=== PATIENT | female | born 1990 | race Caucasian/White ===

== ENCOUNTER 2019-04-22 15:21 | Inpatient (IN) | payer OTHER ==
[~2019-04-22] VITALS: Ht 170.2 cm; Wt 53.6 kg
[~2019-04-22 15:21] MED LIST: ATARAX,VISTARIL50 MG PO; CARBIDOPA/LEVOD1 TA1 PO; ZOFRAN 4 MG ED2 TAB PO
[2019-04-22 16:00] VITALS: BP 115/71
--- NOTE | 2019-04-22 16:47 | NUR ---
Patient meets [facility] criteria. CINA=16. Patient is planning on going to [facility] post discharge. Patient stated she was calling [facility] or tomorrow morning to schedule this herself.
[2019-04-22 17:00] VITALS: BP 115/71
[2019-04-22 17:03] LABS: BILIRUBIN NEGATIVE (NEGATIVE); BLOOD NEGATIVE (NEGATIVE); CLARITY SL CLOUDY (CLEAR); COLOR YELLOW (YELLOW); GLUCOSE NEGATIVE (NEGATIVE); KETONE NEGATIVE (NEGATIVE); LEUKO ESTERASE NEGATIVE (NEGATIVE); NITRITE NEGATIVE (NEGATIVE); UROBILINOGEN 0.2 E.U./dl (0.2-1.0)
[2019-04-22 17:10] LABS: URINE AMPHETAMINES < 1000 (1000ng/ml); URINE BARBITURATES < 200 (200ng/ml); URINE BENZODIAZEPINES < 200 (200ng/ml); URINE CANNABINOIDS (THC) > 50 (50ng/ml); URINE COCAINE < 300 (300ng/ml); URINE METHADONE < 300 (300ng/ml); URINE OPIATES > 300 (300ng/ml)
[2019-04-22 17:11] LABS: URINE PHENCYCLIDINE < 25 (25ng/ml)
[2019-04-22 17:16] LABS: BACTERIA 2+
[2019-04-22 19:12] LABS: BASO % 0.4 % (0.0-1.0); EOS # 0.1 10*3/uL (0.0-0.4); HEMATOCRIT 40.4 % (37.0-47.0); HEMOGLOBIN 13.4 g/dl (12.0-16.0); MEAN CELL VOLUME 93.7 fl (81.0-99.0); MEAN CORPUSCULAR HGB 31.1 pg (27.0-31.0); MEAN CORPUSCULAR HGB CONC 33.2 g/dl (33.0-37.0); MEAN PLATELET VOLUME 10.8 fl (9.6-12.3); MONO # 0.4 10*3/uL (0.1-1.0); MONO % 7.4 % (3.0-9.0); NEUT # 2.9 10*3/uL (2.3-7.9); PLATELET COUNT AUTOMATED 228 10*3/uL (130-400); RED BLOOD COUNT 4.31 10*6/uL (4.10-5.10); RED CELL DISTRI WIDTH 11.9 % (0-14.5); WHITE BLOOD COUNT 5.4 10*3/uL (4.8-10.8)
[2019-04-22 19:19] LABS: INTERNATIONAL NORM RATIO 0.9 (2.0-3.5)
[2019-04-22 19:20] LABS: ALBUMIN 3.9 gm/dl (3.1-4.5); ALKALINE PHOSPHATASE 59 U/L (45-117); BUN 5 mg/dl (7-24); CHLORIDE 108 mmol/L (98-107); CREATININE 0.73 mg/dL (0.55-1.02); POTASSIUM 4.1 mmol/L (3.5-5.1); SGOT/AST 17 IU/L (3-35); SGPT/ALT 17 U/L (12-78); SODIUM 141 mmol/L (136-145); TOTAL PROTEIN 7.4 gm/dL (6.4-8.2)
[2019-04-22 19:24] LABS: BETA-HCG, QUANT < 1.0 mIU/mL (1-3); ETHYL ALCOHOL < 3.0 mg/dl (<3)
[2019-04-22 20:00] VITALS: BP 106/70
--- NOTE | 2019-04-22 20:09 | NUR ---
C/O NAUSEA, MUSCLE ACHES AND RESTLESSNESS OF LEG. ZOFRAN GIVEN FOR NAUSE, ROBAXIN FOR MUSCLE ACHES AND REQUIP FOR RESTLESSNESS. SEE MAR.
--- NOTE | 2019-04-22 21:00 | NUR ---
robaxin, requip and zofran effective for withdrawl symptoms.
--- NOTE | 2019-04-22 22:00 | NUR ---
PATIENT C/O NOT BEING ABLE TO SLEEP. TRAZADONE GIVEN FOR THIS SEE MAR.
[2019-04-23] VITALS: BP 102/60; BP 97/54
--- NOTE | 2019-04-23 01:56 | NUR ---
24 HR chart check completed.
[2019-04-23 04:00] VITALS: BP 104/62
--- NOTE | 2019-04-23 04:33 | NUR ---
C/O HURTING ALL OVER, MOTRIN AND ROBAXIN GIVEN FOR MUSCLE AND BODY ACHES.
--- NOTE | 2019-04-23 05:30 | NUR ---
MOTRIN AND ROBAXIN EFFECTIVE FOR MUSCLE AND BODY ACHES PER PT.
[2019-04-23 08:00] VITALS: BP 95/48
--- NOTE | 2019-04-23 09:12 | NUR ---
C/O NAUSEA, RESTLESS LEGS, HEADACHE, ANXIETY AND ZOFRAN. GIVEN BENTYL, REQUIP, TYLENOL, VISTARIL AND ZOFRAN. WILL CONT TO MONITOR. CALL LIGHT IN REACH.
--- NOTE | 2019-04-23 10:12 | NUR ---
PRN MEDS EFF. WILL CONT TO MONITOR. CALL LIGHT IN REACH.
[2019-04-23 11:30] VITALS: BP 116/62
--- NOTE | 2019-04-23 13:48 | NUR ---
[facility] STAFF IN TO SPEAK WITH PATIENT. PATIENT IS GOING TO FOLLOW UP WITH [facility] IN [place] FOR OUTPATIENT TREATMENT. PATIENT IS PLANNING ON RECEIVING THE [facility]OT ALONG WITH [facility]. PATIENT HAS A SCHEDULED APPOINTMENT ON May. PATIENT WILL NEED IN STAFF TO SET UP TRANSPORATION THROUGH HER INSURANCE AT DISCHARGE. 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
[2019-04-23 16:00] VITALS: BP 97/53
--- NOTE | 2019-04-23 19:42 | NUR ---
C/O MUSCLE CRAMPING IN SHOULDERS AND LEGS. MOTRIN AND ROBAXIN GIVEN PER ORDER FOR MUSCLE CRAMPS. NICOTIN PATCH PLACED ON RIGHT SHOULDER.
--- NOTE | 2019-04-23 20:40 | NUR ---
ROBAXIN AND MOTRIN EFFECTIVE FOR MUSCLE ACHES AND PAINS.
--- NOTE | 2019-04-23 22:06 | NUR ---
C/O OF FEELING MORE ANXIOUS AND WANTS TO SLEEP BUT CAN'T, RESTLESSNESS IN LEGS AND HEADACHE RATED '5' VISTARIL, TRAZADONE, TYLENOL, REQUIP GIVEN PER ORDER FOR WITHDRAWL SYMPTOMS. SEE MAR.
--- NOTE | 2019-04-23 22:58 | NUR ---
SECOND TRAZADONE GIVEN FOR INSOMNIA. SEE MAR.
[2019-04-23 23:00] VITALS: BP 102/60
--- NOTE | 2019-04-24 00:50 | NUR ---
24 HR chart check completed.
--- NOTE | 2019-04-24 04:26 | NUR ---
AWAKEND FOR SUBUTEX. NO ACUTE DISTRESS NOTED.
--- NOTE | 2019-04-24 07:00 | NUR ---
REPORT RECEIVED FROM MADAN REARDON. PT SLEEPING AT THIS TIME. RESPIRATIONS EASY AND UNLABORED, NO DISTRESS NOTED. CALL LIGHT IN REACH.
[2019-04-24 08:00] VITALS: BP 98/56
--- NOTE | 2019-04-24 08:45 | NUR ---
ROBAXIN AND MOTRIN GIVEN FOR COMPLAINTS OF MUSCLE ACHES AND HEADACHE. WILL MONITOR EFFECTIVENESS.
--- NOTE | 2019-04-24 10:30 | NUR ---
ROBAXIN AND MOTRIN EFFECTIVE FOR PAIN PER PT.
[2019-04-24 11:30] VITALS: BP 116/62
--- NOTE | 2019-04-24 11:36 | NUR ---
VISTARIL GIVEN PER ORDER FOR COMPLAINTS OF ANXIETY, WILL MONITOR EFFECTIVENESS.
[2019-04-24 12:03] VITALS: BP 101/57
--- NOTE | 2019-04-24 13:00 | NUR ---
VISTARIL APPEARS EFFECTIVE, PT SLEEPING AT THIS TIME. CALL LIGHT IN REACH.
--- NOTE | 2019-04-24 15:15 | NUR ---
PATIENT'S IS SCHEDULED TO GO TO [facility]. PATIENT HAS AN SCHEDULED APPOINTMENT ON May. [facility] STAFF WILL SET TRANSPORATION UP THROUGH HER INSURANCE TOMORROW. PATIENT AGREES AND UNDERSTANDS HER AFTERCARE PLAN. 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
[2019-04-24 16:00] VITALS: BP 116/56
--- NOTE | 2019-04-24 18:52 | NUR ---
NICOTINE PATCH APPLIED PER PT REQUEST.
[2019-04-24 20:00] VITALS: BP 115/69
--- NOTE | 2019-04-24 21:02 | NUR ---
24 HR chart check completed.
--- NOTE | 2019-04-24 22:10 | NUR ---
Patient displaying withdrawal symptoms, including: irritability, anxiousness, restlessness and agitation. Scheduled/PRN medications provided, SEE EMAR. Will continue to monitor medication effectiveness.
--- NOTE | 2019-04-24 23:30 | NUR ---
Patient resting. Responding to scheduled medications with fewer complaints of pain and anxiety.
[2019-04-25] VITALS: BP 116/70
--- NOTE | 2019-04-25 00:30 | NUR ---
SLEEPING. NO DISTRESS NOTED. RESPIRATIONS EASY. VSS. CALL LIGHT WITHIN REACH
--- NOTE | 2019-04-25 06:00 | NUR ---
Patient resting. Responding to scheduled medications with fewer complaints of pain and anxiety.
[2019-04-25 06:18] LABS: BASO % 0.2 % (0.0-1.0); EOS # 0.1 10*3/uL (0.0-0.4); EOS % 2.3 % (1.0-4.0); HEMATOCRIT 35.6 % (37.0-47.0); HEMOGLOBIN 11.4 g/dl (12.0-16.0); LYMPH # 2.4 10*3/uL (1.3-4.4); LYMPH % 45.1 % (27.0-41.0); MEAN CORPUSCULAR HGB 30.7 pg (27.0-31.0); MEAN PLATELET VOLUME 11.4 fl (9.6-12.3); MONO # 0.4 10*3/uL (0.1-1.0); MONO % 6.7 % (3.0-9.0); NEUT # 2.4 10*3/uL (2.3-7.9); NEUT % 45.7 % (47.0-73.0); PLATELET COUNT AUTOMATED 178 10*3/uL (130-400); RED BLOOD COUNT 3.71 10*6/uL (4.10-5.10); RED CELL DISTRI WIDTH 11.7 % (0-14.5); WHITE BLOOD COUNT 5.3 10*3/uL (4.8-10.8)
[2019-04-25 06:23] LABS: CREATININE 0.71 mg/dL (0.55-1.02)
[2019-04-25 08:00] VITALS: BP 113/57
--- NOTE | 2019-04-25 10:01 | NUR ---
WENT TO PT ROOM TO GIVE DISCHARGE INSTRUCTIONS AND PT HAS LEFT AND DIDN'T RECEIVED DISCHARGE INSTRUCTIONS.
== END 2019-04-25 10:10 | disposition home or self-care (01) | DRG 773 ==
LOC: 5E 15:21 → 4E 04-24 15:19
PROVIDERS: Internal Medicine; ADMIT Family Medicine
DX: F11.23 Opioid dependence with withdrawal (principal); J45.909 Unspecified asthma, uncomplicated; R82.71 Bacteriuria; F12.10 Cannabis abuse, uncomplicated; F17.210 Nicotine dependence, cigarettes, uncomplicated; Z71.6 Tobacco abuse counseling; Z82.49 Family history of ischemic heart disease and other diseases of the circulatory system